=== PATIENT | female | born 1990 | race Caucasian/White ===

== ENCOUNTER → 2017-01-08 | Outpatient (CLI) | payer OTHER | LOC: LAB 10:22 | DX: R05 Cough (principal); M79.1 Myalgia; J02.9 Acute pharyngitis, unspecified ==

== ENCOUNTER → 2017-11-14 | Outpatient (CLI) | payer OTHER ==
[2017-11-14 10:47] LABS: ALBUMIN 4.5 g/dL (3.5-5.0); BUN/CREATININE RATIO 16.8 (6.0-26.0); CALCIUM 9.4 mg/dL (8.4-10.2); POTASSIUM 4.2 mmol/L (3.6-5.0); TOTAL BILIRUBIN 0.3 mg/dL (0.2-1.3); TOTAL PROTEIN 7.9 g/dL (6.3-8.2)
[2017-11-15 07:24] LABS: EOS # 0.1 (0.04-0.40); EOS % 1.1 % (1.0-5.0); HEMATOCRIT 48.7 % (37.0-47.0); HEMOGLOBIN 14.8 g/dL (12.5-16.0); LYMPH# 1.6 (1.50-4.00); MEAN CELL VOLUME 100 fl (78-100); MEAN CORPUSCULAR HEMOGLOBIN 30 pg (27-31); MEAN CORPUSCULAR HGB CONC 30 g/dL (33-37); MEAN PLATELET VOLUME 11.7 fl (7.4-10.4); MONO # 0.5 (0.20-0.80); NEU # 4.3 (1.40-6.50); PLATELET COUNT 268 K/mm3 (130-400); RED BLOOD COUNT 4.88 M/mm3 (4.10-5.30); RED CELL DISTRIBUTION WIDTH 13.7 % (11.5-14.5); WHITE BLOOD COUNT 6.5 K/mm3 (4.8-10.8)
== END ==
LOC: LAB 10:23
PROVIDERS: Nurse Practitioner Family
DX: R53.83 Other fatigue (principal); R51 Headache; R53.81 Other malaise; R63.5 Abnormal weight gain; Z88.5 Allergy status to narcotic agent

== ENCOUNTER → 2018-08-25 | Outpatient (CLI) | payer OTHER | LOC: LAB 11:21 | DX: O99.519 Diseases of the respiratory system complicating pregnancy, unspecified trimester (principal); R50.9 Fever, unspecified ==

== ENCOUNTER 2018-10-10 21:05 | Emergency (ER) | payer OTHER ==
[~2018-10-10] VITALS: Ht 162.6 cm; Wt 86.4 kg
[2018-10-10] MEDS ORDERED: MIRALAX17 GM PO (22:02)
[2018-10-10 22:13] LABS: PH-URINE 6.5 (5.0 - 8.0); URINE APPEARANCE CLEAR; URINE BILIRUBIN NEGATIVE (NEGATIVE); URINE BLOOD 250 ery/uL (NEGATIVE); URINE COLOR YELLOW; URINE GLUCOSE NEGATIVE (NEGATIVE); URINE KETONE NEGATIVE (NEGATIVE); URINE LEUKOCYTE ESTERASE NEGATIVE (NEGATIVE); URINE NITRATE NEGATIVE (NEGATIVE); URINE PROTEIN(semi-quant) TRACE mg/dL (NEGATIVE); URINE UROBILINOGEN NORMAL (NORMAL); URINE WBC 0-1 /hpf (0-3)
[2018-10-10] MEDS ORDERED: CALCI PO (22:27)
[2018-10-10] MEDS ORDERED: ZANTAC 7575 M1 PO (22:27)
[2018-10-10] MEDS ORDERED: VENLAFAXINE HYD75 MG PO (22:27)
[2018-10-10] MEDS ORDERED: PRENATAL 19 TA1 EACH PO (22:28)
[2018-10-10 22:47] LABS: EOS # 0.1 (0.04-0.40); EOS % 0.8 % (1.0-5.0); HEMATOCRIT 35.4 % (37.0-47.0); HEMOGLOBIN 11.9 g/dL (12.5-16.0); LYMPH# 1.6 (1.50-4.00); MEAN CELL VOLUME 92 fl (78-100); MEAN CORPUSCULAR HEMOGLOBIN 31 pg (27-31); MEAN CORPUSCULAR HGB CONC 34 g/dL (33-37); MEAN PLATELET VOLUME 10.3 fl (7.4-10.4); MONO # 0.7 (0.20-0.80); PLATELET COUNT 255 K/mm3 (130-400); RED BLOOD COUNT 3.84 M/mm3 (4.10-5.30); RED CELL DISTRIBUTION WIDTH 13.2 % (11.5-14.5); WHITE BLOOD COUNT 8.4 K/mm3 (4.8-10.8)
[2018-10-10 23:15] LABS: ALBUMIN 3.3 g/dL (3.5-5.0); CALCIUM 8.7 mg/dL (8.4-10.2); POTASSIUM 3.7 mmol/L (3.6-5.0); TOTAL BILIRUBIN 0.1 mg/dL (0.2-1.3); TOTAL PROTEIN 5.9 g/dL (6.3-8.2)
[2018-10-10] MEDS ORDERED: NORCO 325 MG-51 TA1 PO (23:41)
[2018-10-10] MEDS ORDERED: ZOFRAN ODT4 MG PO (23:41)
[2018-10-10 23:58] VITALS: BP 140/80
== END 2018-10-10 23:58 | disposition home or self-care (01) ==
LOC: ED 21:05
PROVIDERS: Family Medicine
DX: O99.89 Other specified diseases and conditions complicating pregnancy, childbirth and the puerperium (principal); R10.31 Right lower quadrant pain; R10.32 Left lower quadrant pain; R31.29 Other microscopic hematuria; Z3A.23 23 weeks gestation of pregnancy; Z79.899 Other long term (current) drug therapy

== ENCOUNTER 2019-01-22 07:47 | Emergency (ER) | payer BC ==
[~2019-01-22] VITALS: Ht 160 cm; Wt 106.4 kg
[~2019-01-22 07:47] MED LIST: CALCI PO; MIRALAX17 GM PO; NORCO 325 MG-51 TA1 PO; PRENATAL 19 TA1 EACH PO; VENLAFAXINE HYD75 MG PO; ZANTAC 7575 M1 PO; ZOFRAN ODT4 MG PO
[2019-01-22] MEDS ORDERED: PERCOCET 325 MG1 TA5 PO (08:11)
[2019-01-22] MEDS ORDERED: IBU800 M1 PO (08:11)
[2019-01-22] MEDS ORDERED: LABETALOL HYDR200 MG PO (08:11)
[2019-01-22 08:25] LABS: EOS # 0.2 (0.04-0.40); EOS % 2.4 % (1.0-5.0); HEMATOCRIT 32.8 % (37.0-47.0); HEMOGLOBIN 10.1 g/dL (12.5-16.0); LYMPH# 0.9 (1.50-4.00); MEAN CELL VOLUME 91 fl (78-100); MEAN CORPUSCULAR HEMOGLOBIN 28 pg (27-31); MEAN CORPUSCULAR HGB CONC 31 g/dL (33-37); MEAN PLATELET VOLUME 10.1 fl (7.4-10.4); MONO # 0.4 (0.20-0.80); NEU # 4.8 (1.40-6.50); PLATELET COUNT 313 K/mm3 (130-400); RED BLOOD COUNT 3.61 M/mm3 (4.10-5.30); RED CELL DISTRIBUTION WIDTH 13.6 % (11.5-14.5); WHITE BLOOD COUNT 6.3 K/mm3 (4.8-10.8)
[2019-01-22 08:38] LABS: ALBUMIN 3.2 g/dL (3.5-5.0); CALCIUM 8.6 mg/dL (8.4-10.2); POTASSIUM 3.7 mmol/L (3.6-5.0); TOTAL BILIRUBIN 0.4 mg/dL (0.2-1.3); TOTAL PROTEIN 6.2 g/dL (6.3-8.2)
[2019-01-22 08:51] LABS: TROPONIN-I < 0.03 ng/mL (0.00-0.06)
[2019-01-22 09:20] LABS: URINE APPEARANCE CLEAR; URINE BILIRUBIN NEGATIVE (NEGATIVE); URINE BLOOD 250 ery/uL (NEGATIVE); URINE COLOR YELLOW; URINE GLUCOSE NEGATIVE (NEGATIVE); URINE KETONE NEGATIVE (NEGATIVE); URINE LEUKOCYTE ESTERASE NEGATIVE (NEGATIVE); URINE NITRATE NEGATIVE (NEGATIVE); URINE PROTEIN(semi-quant) NEGATIVE (NEGATIVE); URINE UROBILINOGEN NORMAL (NORMAL)
[2019-01-22 13:14] VITALS: BP 150/100
== END 2019-01-22 13:15 | disposition short-term general hospital (02) ==
LOC: ED 07:47
PROVIDERS: Nurse Practitioner Primary Care
DX: O90.3 Peripartum cardiomyopathy (principal); Z88.5 Allergy status to narcotic agent
CPT/HCPCS: J0360; J1940; Q9967

== ENCOUNTER → 2019-02-18 | Outpatient (CLI) | payer BC ==
[~2019-02-18] VITALS: Ht 160 cm; Wt 106.4 kg
[~2019-02-18] MED LIST changes: +COREG 6.256.25 MG/TA PO; +IBU800 M1 PO; +LABETALOL HYDR200 MG PO; +PERCOCET 325 MG1 TA5 PO
[2019-02-18 09:45] VITALS: BP 133/82
[2019-02-18 10:49] LABS: ALBUMIN 4.5 g/dL (3.5-5.0); ALT/SGPT 51 U/L (0-55); AST-SGOT 33 U/L (5-34); CALCIUM 10.4 mg/dL (8.4-10.2); CARBON DIOXIDE 24 mmol/L (22-29); GLUCOSE 107 mg/dL (65-105); POTASSIUM 4.3 mmol/L (3.5-5.1); SODIUM 140 mmol/L (136-145); TOTAL BILIRUBIN 0.5 mg/dL (0.2-1.2); TOTAL PROTEIN 7.8 g/dL (6.4-8.3)
[2019-02-18 10:53] LABS: TROPONIN-I < 0.03 ng/mL (<0.030)
[2019-02-18 10:56] LABS: D-DIMER 0.44 mg/L FEU (0.15-0.50)
[2019-02-18 15:00] VITALS: BP 128/80
[2019-02-18 15:30] VITALS: BP 147/90
[2019-02-18 15:32] VITALS: BP 147/90
[2019-02-18 16:05] LABS: HEMATOCRIT 41.1 % (37.0-47.0); HEMOGLOBIN 12.8 g/dL (12.5-16.0); MEAN CELL VOLUME 89 fl (78-100); MEAN CORPUSCULAR HEMOGLOBIN 28 pg (27-31); MEAN CORPUSCULAR HGB CONC 31 g/dL (33-37); MEAN PLATELET VOLUME 11.5 fl (7.4-10.4); PLATELET COUNT 220 K/mm3 (130-400); RED BLOOD COUNT 4.61 M/mm3 (4.10-5.30); RED CELL DISTRIBUTION WIDTH 13.5 % (11.5-14.5); WHITE BLOOD COUNT 8.5 K/mm3 (4.8-10.8)
[2019-02-18 16:23] LABS: LYMPHOCYTE 7 % (20-51); MONOCYTE 2 % (3-10); NEUTROPHILS 89 % (42-75)
[2019-02-18 17:38] VITALS: BP 124/97
[2019-02-18 18:49] LABS: PH-URINE 7.5 (5.0 - 8.0); URINE APPEARANCE HAZY; URINE BILIRUBIN NEGATIVE (NEGATIVE); URINE COLOR YELLOW; URINE GLUCOSE NEGATIVE (NEGATIVE); URINE KETONE NEGATIVE (NEGATIVE); URINE PROTEIN(semi-quant) NEGATIVE (NEGATIVE)
[2019-02-18 18:50] LABS: URINE BLOOD NEGATIVE (NEGATIVE); URINE LEUKOCYTE ESTERASE NEGATIVE (NEGATIVE); URINE NITRATE NEGATIVE (NEGATIVE); URINE UROBILINOGEN NORMAL (NORMAL)
== END ==
LOC: LAB 09:35 → AMSURD 09:35
PROVIDERS: Nurse Practitioner
DX: O99.43 Diseases of the circulatory system complicating the puerperium (principal); O14.90 Unspecified pre-eclampsia, unspecified trimester; R00.0 Tachycardia, unspecified; I42.9 Cardiomyopathy, unspecified; R11.2 Nausea with vomiting, unspecified
CPT/HCPCS: J2405; J2550; J7030

== ENCOUNTER → 2019-10-29 | Outpatient (CLI) | payer BC ==
[2019-02-18 17:38] VITALS: BP 124/97
[2019-10-29 13:59] LABS: EOS # 0.1 (0.04-0.40); EOS % 1.5 % (1.0-5.0); HEMATOCRIT 39.4 % (37.0-47.0); HEMOGLOBIN 12.8 g/dL (12.5-16.0); LYMPH# 1.3 (1.50-4.00); MEAN CELL VOLUME 90 fl (78-100); MEAN CORPUSCULAR HEMOGLOBIN 29 pg (27-31); MEAN CORPUSCULAR HGB CONC 33 g/dL (33-37); MEAN PLATELET VOLUME 10.6 fl (7.4-10.4); MONO # 0.6 (0.20-0.80); NEU # 3.2 (1.40-6.50); PLATELET COUNT 283 K/mm3 (130-400); RED BLOOD COUNT 4.36 M/mm3 (4.10-5.30); RED CELL DISTRIBUTION WIDTH 12.6 % (11.5-14.5); WHITE BLOOD COUNT 5.3 K/mm3 (4.8-10.8)
[2019-10-29 14:11] LABS: ALBUMIN 3.8 g/dL (3.5-5.0); POTASSIUM 3.8 mmol/L (3.5-5.1)
[2019-10-29 14:12] LABS: CALCIUM 8.6 mg/dL (8.3-10.5)
[2019-10-29 14:14] LABS: TOTAL PROTEIN 6.5 g/dL (6.4-8.3)
[2019-10-29 14:16] LABS: TOTAL BILIRUBIN 0.2 mg/dL (0.2-1.2)
== END ==
LOC: LAB 13:47
PROVIDERS: Physician Assistant
DX: K52.9 Noninfective gastroenteritis and colitis, unspecified (principal); I42.9 Cardiomyopathy, unspecified

== ENCOUNTER → 2020-04-15 | Outpatient (CLI) | payer BC ==
[2019-02-18 17:38] VITALS: BP 124/97
== END ==
LOC: LAB 09:45
DX: R50.9 Fever, unspecified (principal); J02.9 Acute pharyngitis, unspecified; R09.81 Nasal congestion; Z20.828 Contact with and (suspected) exposure to other viral communicable diseases

== ENCOUNTER → 2020-08-27 | Outpatient (CLI) | payer BC ==
[2019-02-18 17:38] VITALS: BP 124/97
== END ==
LOC: LAB 09:27
DX: R68.83 Chills (without fever) (principal); Z20.828 Contact with and (suspected) exposure to other viral communicable diseases

== ENCOUNTER 2021-01-16 07:00 | Emergency (ER) | payer BC ==
[2021-01-16] MEDS ORDERED: VENLAFAXINE HY150 MG PO (07:43)
[2021-01-16 07:55] LABS: ALBUMIN 4.5 g/dL (3.5-5.0)
[2021-01-16 07:57] LABS: CALCIUM 9.1 mg/dL (8.3-10.5)
[2021-01-16 07:58] LABS: TOTAL PROTEIN 7.6 g/dL (6.4-8.3)
[2021-01-16 08:00] LABS: TOTAL BILIRUBIN 0.6 mg/dL (0.2-1.2)
[2021-01-16 08:24] LABS: PH-URINE 6.5 (5.0 - 8.0); URINE APPEARANCE CLEAR; URINE BILIRUBIN NEGATIVE (NEGATIVE); URINE BLOOD TRACE (NEGATIVE); URINE COLOR YELLOW; URINE GLUCOSE NEGATIVE (NEGATIVE); URINE KETONE NEGATIVE (NEGATIVE); URINE LEUKOCYTE ESTERASE NEGATIVE (NEGATIVE); URINE MUCUS PRESENT (NOT PRESENT); URINE NITRATE NEGATIVE (NEGATIVE); URINE PROTEIN(semi-quant) NEGATIVE (NEGATIVE); URINE UROBILINOGEN NORMAL (NORMAL)
[2021-01-16] MEDS ORDERED: ZOFRAN4 M2 PO (08:38)
[2021-01-16 08:49] VITALS: BP 122/72
== END 2021-01-16 08:50 | disposition home or self-care (01) ==
LOC: ED 07:00
PROVIDERS: Nurse Practitioner
DX: A08.4 Viral intestinal infection, unspecified (principal); Z88.6 Allergy status to analgesic agent
CPT/HCPCS: J2405; J7030

== ENCOUNTER → 2021-12-08 | Outpatient (CLI) | payer OTHER ==
[~2021-12-08] MED LIST changes: +VENLAFAXINE HY150 MG PO; +ZOFRAN4 M2 PO
[2021-12-08 09:32] LABS: BASO # 0.01 K/mm3 (0.02-0.10); EOS # 0.13 K/mm3 (0.04-0.40); EOS % 2.1 % (1.0-5.0); HEMATOCRIT 41.3 % (37.0-47.0); HEMOGLOBIN 13.6 g/dL (12.5-16.0); LYMPH# 1.65 K/mm3 (1.50-4.00); MEAN CELL VOLUME 88 fl (78-100); MEAN CORPUSCULAR HEMOGLOBIN 29 pg (27-31); MEAN CORPUSCULAR HGB CONC 33 g/dL (33-37); MEAN PLATELET VOLUME 10.7 fl (7.4-10.4); NEU # 3.93 K/mm3 (1.40-6.50); PLATELET COUNT 304 K/mm3 (130-400); RED BLOOD COUNT 4.67 M/mm3 (4.10-5.30); RED CELL DISTRIBUTION WIDTH 13.1 % (11.5-14.5); WHITE BLOOD COUNT 6.2 K/mm3 (4.8-10.8)
[2021-12-08 09:35] LABS: POTASSIUM 4.1 mmol/L (3.5-5.1)
[2021-12-08 09:36] LABS: CALCIUM 9.4 mg/dL (8.3-10.5)
[2021-12-08 09:38] LABS: TOTAL PROTEIN 6.8 g/dL (6.4-8.3)
[2021-12-08 09:39] LABS: TOTAL BILIRUBIN 0.3 mg/dL (0.2-1.2)
== END ==
LOC: LAB 08:20
PROVIDERS: Physician Assistant
DX: Z00.00 Encounter for general adult medical examination without abnormal findings (principal); Z13.29 Encounter for screening for other suspected endocrine disorder; Z13.1 Encounter for screening for diabetes mellitus; I42.9 Cardiomyopathy, unspecified; F41.8 Other specified anxiety disorders; K90.9 Intestinal malabsorption, unspecified

== ENCOUNTER → 2022-05-19 | Outpatient (CLI) | payer OTHER ==
[2022-05-19 13:22] LABS: ALBUMIN 4.5 g/dL (3.5-5.0)
[2022-05-19 13:23] LABS: POTASSIUM 4.2 mmol/L (3.5-5.1)
[2022-05-19 13:24] LABS: CALCIUM 9.7 mg/dL (8.3-10.5)
[2022-05-19 13:25] LABS: TOTAL PROTEIN 7.7 g/dL (6.4-8.3)
[2022-05-19 13:27] LABS: TOTAL BILIRUBIN 0.3 mg/dL (0.2-1.2)
== END ==
LOC: LAB 12:53
PROVIDERS: Nurse Practitioner Family
DX: Z20.822 Contact with and (suspected) exposure to COVID-19 (principal)

== ENCOUNTER 2022-05-31 03:17 | Emergency (ER) | payer OTHER ==
[~2022-05-31] VITALS: Wt 100.0 kg
[2022-05-31 05:07] VITALS: BP 119/75
== END 2022-05-31 05:08 | disposition home or self-care (01) ==
LOC: ED 03:17
DX: G43.909 Migraine, unspecified, not intractable, without status migrainosus (principal)
CPT/HCPCS: J1885; J2550; J7030

== ENCOUNTER → 2023-07-15 | Outpatient (CLI) | payer OTHER | LOC: RAD 07:00 | DX: N64.59 Other signs and symptoms in breast (principal) ==

== ENCOUNTER → 2024-02-07 | Outpatient (CLI) | payer OTHER ==
[2024-02-07 10:12] LABS: PH-URINE 8.5 (5.0 - 8.0); URINE APPEARANCE CLOUDY (CLEAR); URINE COLOR YELLOW (YELLOW)
[2024-02-07 10:15] LABS: URINE BILIRUBIN 1+ (NEGATIVE); URINE BLOOD 3+ (NEGATIVE); URINE GLUCOSE NEGATIVE (NEGATIVE); URINE KETONE NEGATIVE (NEGATIVE); URINE NITRATE NEGATIVE (NEGATIVE); URINE PROTEIN(semi-quant) 3+ (NEGATIVE)
[2024-02-07 10:16] LABS: URINE LEUKOCYTE ESTERASE TRACE (NEGATIVE)
[2024-02-07 10:17] LABS: URINE WBC 16-30 /hpf (0-3)
== END ==
LOC: LAB 08:51
PROVIDERS: Physician Assistant
DX: N39.0 Urinary tract infection, site not specified (principal)

== ENCOUNTER 2024-03-31 16:44 | Emergency (ER) | payer OTHER ==
[~2024-03-31] VITALS: Wt 55.4 kg
[2024-03-31] MEDS ORDERED: VENLAFAXINE HCL75 M3 PO (17:09)
[2024-03-31] MEDS ORDERED: ONDANSETRON HYDR4 MG PO (17:10)
[2024-03-31] MEDS ORDERED: BARIATRIC MV-I1 EACH PO (17:11)
[2024-03-31] MEDS ORDERED: HAIR, SKIN & N1 EACH PO (17:11)
[2024-03-31] MEDS ORDERED: ACETAMINOPHEN-H1 TA2 PO (17:12)
[2024-03-31 17:15] LABS: BASO # 0.01 K/mm3 (0.02-0.10); EOS # 0.11 K/mm3 (0.04-0.40); EOS % 1.7 % (1.0-5.0); HEMATOCRIT 34.7 % (37.0-47.0); HEMOGLOBIN 11.4 g/dL (12.5-16.0); LYMPH# 1.37 K/mm3 (1.50-4.00); MEAN CELL VOLUME 96 fl (78-100); MEAN CORPUSCULAR HEMOGLOBIN 32 pg (27-31); MEAN CORPUSCULAR HGB CONC 33 g/dL (33-37); MEAN PLATELET VOLUME 10.2 fl (7.4-10.4); MONO # 0.44 K/mm3 (0.20-0.80); NEU # 4.45 K/mm3 (1.40-6.50); PLATELET COUNT 284 K/mm3 (130-400); RED BLOOD COUNT 3.61 M/mm3 (4.10-5.30); RED CELL DISTRIBUTION WIDTH 13.6 % (11.5-14.5); WHITE BLOOD COUNT 6.4 K/mm3 (4.8-10.8)
[2024-03-31 17:23] LABS: CALCIUM 9.4 mg/dL (8.3-10.5)
[2024-03-31 17:24] LABS: TOTAL PROTEIN 6.4 g/dL (6.4-8.3)
[2024-03-31 17:26] LABS: TOTAL BILIRUBIN 0.9 mg/dL (0.2-1.2)
[2024-03-31 17:34] LABS: ALBUMIN 4.1 g/dL (3.5-5.0)
[2024-03-31] MEDS ORDERED: Iohexol 300 - 100 ML VIAL IV ONE (18:00)
[2024-03-31 19:11] LABS: PH-URINE 7.5 (5.0 - 8.0); URINE APPEARANCE CLEAR (CLEAR); URINE COLOR YELLOW (YELLOW); URINE GLUCOSE NEGATIVE (NEGATIVE); URINE KETONE 2+ (NEGATIVE); URINE PROTEIN(semi-quant) NEGATIVE (NEGATIVE)
[2024-03-31 19:12] LABS: URINE BILIRUBIN NEGATIVE (NEGATIVE); URINE BLOOD NEGATIVE (NEGATIVE); URINE LEUKOCYTE ESTERASE NEGATIVE (NEGATIVE); URINE NITRATE NEGATIVE (NEGATIVE)
[2024-03-31 19:36] VITALS: BP 121/82
== END 2024-03-31 19:36 | disposition home or self-care (01) ==
LOC: ED 16:44
PROVIDERS: Family Medicine
DX: R11.2 Nausea with vomiting, unspecified (principal); E87.6 Hypokalemia; R10.31 Right lower quadrant pain
CPT/HCPCS: J7120; Q9967